=== PATIENT | female | born 1990 | race Caucasian/White ===

== ENCOUNTER 2018-06-16 11:46 | Emergency (ER) | payer OTHER ==
[2018-06-16] MEDS ORDERED: DEXAMETHASONE SOD PHOS INJ 10 MG/1 ML VIAL IV ONE (12:14)
[2018-06-16] MEDS ORDERED: NORMAL SALINE 1000 ML 1,000 ML IV ONE (12:14)
--- NOTE | 2018-06-16 12:14 | ER Document Report ---
ED Medical Screen (RME) - General Chief Complaint: Sore Throat Stated Complaint: SORE THROAT Time Seen by Provider: 06/16/18 11:53 TRAVEL OUTSIDE OF THE [place] IN LAST 30 DAYS: No - HPI Notes: 06/16/18 12:13 Patient sent from urgent care for positive strep throat and tonsillar abscess states that the urgent care contacted an ENT and was told to come to the ER for further evaluation patient is unaware of which ENT the urgent care contacted. - Related Data Allergies/Adverse Reactions: amoxicillin [From Augmentin] Allergy (Verified 06/16/18 11:46) clavulanic acid [From Augmentin] Allergy (Verified 06/16/18 11:46) Past Medical History - Social History Frequency of alcohol use: None Drug Abuse: None Renal/ Medical History: Denies: Hx Peritoneal Dialysis Past Surgical History: Reports: Hx Cholecystectomy Review of Systems - Review of Systems EENT: Throat pain Physical Exam - Vital signs Vitals: Temp Pulse Resp BP Pulse Ox 98.1 F 130 H 18 129/85 H 100 06/16/18 11:50 06/16/18 11:50 06/16/18 11:50 06/16/18 11:50 06/16/18 11:50 - General General appearance: Appears well In distress: None - Respiratory Respiratory status: No respiratory distress Chest status: Nontender Breath sounds: Normal Chest palpation: Normal Course - Vital Signs Vital signs: Temp Pulse Resp BP Pulse Ox 98.1 F 130 H 18 129/85 H 100 06/16/18 11:50 06/16/18 11:50 06/16/18 11:50 06/16/18 11:50 06/16/18 11:50
[2018-06-16] MEDS ORDERED: CLINDAMYCIN 600 MG/D5W RTU 600 MG/50 ML RTUPB IV ONE (12:15)
[2018-06-16 12:50] LABS: ABSOLUTE BASOPHILS # (AUTO) 0.1 10^3/uL (0.0-0.2); ABSOLUTE EOSINOPHILS # (AUTO) 0.1 10^3/uL (0.0-0.6); ABSOLUTE LYMPHOCYTES (AUTO) 1.3 10^3/uL (0.5-4.7); ABSOLUTE MONOCYTES (AUTO) 0.7 10^3/uL (0.1-1.4); ABSOLUTE NEUT (AUTO) 13.9 10^3/uL (1.7-8.2); BASOPHILS % (AUTO) 0.3 % (0-2); EOSINOPHILS % (AUTO) 0.6 % (0-6); HEMATOCRIT 42.9 % (36.0-47.0); HEMOGLOBIN 14.6 g/dL (12.0-15.5); LYMPHOCYTES % (AUTO) 8.2 % (13-45); MEAN CORPUSCULAR HEMOGLOBIN 28.1 pg (27.0-33.4); MEAN CORPUSCULAR VOLUME 83 fl (80-97); MONOCYTES % (AUTO) 4.1 % (3-13); PLATELET COUNT 347 10^3/uL (150-450); RED BLOOD COUNT 5.18 10^6/uL (3.72-5.28); SEGMENTED NEUTROPHILS % (AUTO) 86.8 % (42-78); TOTAL CELLS COUNTED % (AUTO) 100 %; WHITE BLOOD COUNT 16.1 10^3/uL (4.0-10.5)
[2018-06-16 13:18] LABS: ANION GAP 15 (5-19); BLOOD UREA NITROGEN 10 mg/dL (7-20); CALCIUM 10.1 mg/dL (8.4-10.2); CARBON DIOXIDE 26 mmol/L (22-30); CHLORIDE 104 mmol/L (98-107); GLUCOSE 112 mg/dL (75-110); POTASSIUM 3.8 mmol/L (3.6-5.0); SODIUM 144.9 mmol/L (137-145)
--- NOTE | 2018-06-16 14:23 | ER Document Report ---
ED General - General Chief Complaint: Sore Throat Stated Complaint: SORE THROAT Time Seen by Provider: 06/16/18 11:53 TRAVEL OUTSIDE OF THE [place] IN LAST 30 DAYS: No - HPI Notes: Patient is a 27-year-old female that presents to the emergency department for chief complaint of right-sided sore throat. Patient reports sore throat for the last 5 days. She was seen at an urgent care facility just prior to arrival and told she had strep throat. Patient was referred to the emergency room for concern of peritonsillar abscess. She received a steroid at the urgent care. She states they spoke with ear nose and throat but she has not sure who they contacted or if they were able to actually speak with them before referring her to the emergency room. She reports intermittent fevers. She denies any cough, nausea, vomiting. She states she is able to swallow but it hurts. She denies any difficulty breathing. Past Medical History: Negative Past Surgical History: Cystectomy, bilateral TM tubes Social History: Denies drugs alcohol and tobacco Family History: Reviewed and noncontributory for presenting illness Allergies: Reviewed, see documented allergy list. REVIEW OF SYSTEMS: CONSTITUTIONAL : fever No chills No diaphoresis No recent illness EENT: No vision changes No congestion sore throat CARDIOVASCULAR: No chest pain No palpitations RESPIRATORY: No shortness of breath No cough No difficulty breathing GASTROINTESTINAL: No abdominal pain No nausea No vomiting No diarrhea GENITOURINARY: No dysuria No hematuria No difficulty urinating MUSCULOSKELETAL: No back pain No leg pain No arm pain SKIN: No rashes No lesions LYMPHATIC: No swollen, enlarged glands. NEUROLOGICAL: No lightheadedness No headache No weakness No paresthesias PSYCHIATRIC: No anxiety No depression PHYSICAL EXAMINATION: Vital signs reviewed, nursing noted reviewed. GENERAL: Well-appearing, well-nourished and in no acute distress. HEAD: Atraumatic, normocephalic. EYES: Eyes appear normal, extraocular movements intact, sclera anicteric, conjunctiva are normal. ENT: nares patent, bilateral tonsillar edema and exudates. Right greater than left. Moist mucous membranes. NECK: Normal range of motion, bilateral anterior chain adenopathy LUNGS: Breath sounds clear to auscultation bilaterally and equal. No wheezes rales or rhonchi. HEART: Regular rate and rhythm without murmurs ABDOMEN: Soft, nontender, normoactive bowel sounds. No rebound, guarding, or rigidity. No masses appreciated. EXTREMITIES: Nontender, good range of motion, no pitting or edema. NEUROLOGICAL: No focal neurological deficits. Moves all extremities spontaneously Motor and sensory grossly intact on exam. PSYCH: Normal mood, normal affect. SKIN: Warm, Dry, normal turgor, no rashes or lesions noted on exposed skin - Related Data Allergies/Adverse Reactions: amoxicillin [From Augmentin] Allergy (Verified 06/16/18 11:46) clavulanic acid [From Augmentin] Allergy (Verified 06/16/18 11:46) Past Medical History - Social History Smoking Status: Never Smoker Frequency of alcohol use: None Drug Abuse: None Family History: Reviewed & Not Pertinent Patient has suicidal ideation: No Patient has homicidal ideation: No Renal/ Medical History: Denies: Hx Peritoneal Dialysis Past Surgical History: Reports: Hx Cholecystectomy Review of Systems - Review of Systems Notes: Dictated Physical Exam - Vital signs Vitals: Temp Pulse Resp BP Pulse Ox 98.1 F 130 H 18 129/85 H 100 06/16/18 11:50 06/16/18 11:50 06/16/18 11:50 06/16/18 11:50 06/16/18 11:50 - Notes Notes: Dictated Course - Re-evaluation Re-evalutation: 06/16/18 14:23 Vitals reviewed. Nursing notes reviewed. Patient had Sirs criteria and was given clindamycin and Decadron. Blood cultures were ordered. 06/16/18 16:02 Patient has elevated WBC count but a normal lactic acid. After IV hydration she is no longer tachycardic. She has remained hemodynamically stable and is not septic. CT shows some fluid around her right tonsil draining into her prevertebral space however I discussed these findings with the reading radiologist who states there is no discernible abscess or fluid collection requiring drainage. Patient will be started on clindamycin at home. She will return for new or worsening symptoms. She will follow with primary care for reevaluation in a few days. She is in agreement with this plan and stable at discharge. Laboratory 06/16/18 06/16/18 06/16/18 12:39 12:39 12:39 WBC 16.1 H RBC 5.18 Hgb 14.6 Hct 42.9 MCV 83 MCH 28.1 MCHC 34.0 RDW 14.0 Plt Count 347 Seg Neutrophils % 86.8 H Lymphocytes % 8.2 L Monocytes % 4.1 Eosinophils % 0.6 Basophils % 0.3 Absolute Neutrophils 13.9 H Absolute Lymphocytes 1.3 Absolute Monocytes 0.7 Absolute Eosinophils 0.1 Absolute Basophils 0.1 Sodium 144.9 Potassium 3.8 Chloride 104 Carbon Dioxide 26 Anion Gap 15 BUN 10 Creatinine 0.46 L Est GFR ( Amer) > 60 Est GFR (Non-Af Amer) > 60 Glucose 112 H Lactic Acid Calcium 10.1 Serum HCG, Qual NEGATIVE Monotest Group A Strep Rapid 06/16/18 06/16/18 06/16/18 12:39 12:39 14:34 WBC RBC Hgb Hct MCV MCH MCHC RDW Plt Count Seg Neutrophils % Lymphocytes % Monocytes % Eosinophils % Basophils % Absolute Neutrophils Absolute Lymphocytes Absolute Monocytes Absolute Eosinophils Absolute Basophils Sodium Potassium Chloride Carbon Dioxide Anion Gap BUN Creatinine Est GFR ( Amer) Est GFR (Non-Af Amer) Glucose Lactic Acid 0.7 Calcium Serum HCG, Qual Monotest NEGATIVE Group A Strep Rapid POSITIVE Soft Tissue Neck CT 06/16/18 14:01 IMPRESSION: Right-sided tonsillitis without intra tonsillar abscess. There is peritonsillar fluid in the right parapharyngeal space tracking into the prevertebral space. Mild narrowing of the oropharyngeal airway - Vital Signs Vital signs: Temp Pulse Resp BP Pulse Ox 98.1 F 130 H 18 129/85 H 100 06/16/18 11:50 06/16/18 11:50 06/16/18 11:50 06/16/18 11:50 06/16/18 11:50 - Laboratory Result Diagrams: 06/16/18 12:39 06/16/18 12:39 Laboratory results interpreted by me: 06/16/18 06/16/18 12:39 12:39 WBC 16.1 H Seg Neutrophils % 86.8 H Lymphocytes % 8.2 L Absolute Neutrophils 13.9 H Creatinine 0.46 L Glucose 112 H Discharge - Discharge Clinical Impression: Strep throat Condition: Stable Disposition: HOME, SELF-CARE Instructions: Strep Throat ([facility]), Family Physicians / Practices Additional Instructions: Please return to the emergency department if you have any worsening, or concern of your symptoms. Please return to the emergency department if you develop chest pain, difficulty breathing, severe abdominal pain, or ongoing vomiting. Please follow-up with your primary care physician in 2-3 days and any other recommended physicians. If prescribed, take all medications as directed. If you have any questions or concerns do not hesitate to return the emergency department for evaluation. [] Prescriptions: Clindamycin HCl 300 mg PO TID #30 capsule
--- NOTE | 2018-06-16 15:44 | RADIOLOGY REPORT (SQ) ---
EXAM DESCRIPTION: CT SOFT TISSUE NECK WITH COMPLETED DATE/TIME: 06/16/2018 3:28 pm REASON FOR STUDY: tonsilar abscess sore throat, difficulty swallowing, evaluate for peritonsillar ab scess COMPARISON: None. TECHNIQUE: Post IV contrasted scanning from skull base through lung apices with review of bone, soft tissue and lung windows. Reconstructed coronal and sagittal MPR images reviewed. All images stored on PACS. All CT scanners at this facility use dose modulation, iterative reconstruction, and/or weight based d osing when appropriate to reduce radiation dose to as low as reasonably achievable (ALARA). [facility]: Dose Right [facility]: CareDose [facility]: Dose Right [facility]: Teradose 4D [facility]: Sproxil CONTRAST TYPE AND DOSE: contrast/concentration: Isovue 350.00 mg/ml; Total Contrast Delivered: 75.0 ml; Total Saline Delivered: 49.6 ml RENAL FUNCTION: Creatinine 0.47 RADIATION DOSE: CT Rad equipment meets quality standard of care and radiation dose reduction techniq ues were employed. CTDIvol: 15.5 mGy. DLP: 450 mGy-cm. . LIMITATIONS: None. FINDINGS: The right pharyngeal tonsil is enlarged, 3.5 cm craniocaudad by 2.8 cm AP by 2.2 cm transv erse. No well-circumscribed right-sided intra tonsillar abscess. However, there is peritonsillar fl uid in the right parapharyngeal space tracking down into the right prevertebral space. A small amoun t of prevertebral fluid is present from C2 through C4, measuring 4 cm craniocaudad by 1.6 cm transver se by 4 mm AP. There is mild narrowing of the oropharyngeal airway. Left pharyngeal tonsil is borderline enlarged, 2.9 x 2.9 x 1.6 cm in size. No intra tonsillar or per itonsillar left-sided abscess. Left parapharyngeal fat is unremarkable. SKULL BASE: Inferior brain parenchyma unremarkable MAJOR SALIVARY GLANDS: No solid or cystic masses. No inflammatory changes. LYMPHADENOPATHY: Mild cervical reactive adenopathy with enlarged jugulodigastric, carotid space, and posterior triangle lymph nodes. MUCOSAL MASSES OR ASYMMETRY: As above LARYNX/CORDS: No abnormal findings. VASCULAR STRUCTURES: The major vessels are patent. LUNG APICES: Clear. BONES: Intact. THYROID: Normal size. No masses. PARANASAL SINUSES: Clear. OTHER: No other significant finding. IMPRESSION: Right-sided tonsillitis without intra tonsillar abscess. There is peritonsillar fluid i n the right parapharyngeal space tracking into the prevertebral space. Mild narrowing of the orophar yngeal airway TECHNICAL DOCUMENTATION: JOB ID: [id number] Quality ID # [id number]: Final reports with documentation of one or more dose reduction techniques (e.g., Au tomated exposure control, adjustment of the mA and/or kV according to patient size, use of iterative reconstruction technique) 2010 [employer]- All Rights Reserved Reading location - IP/workstation name: [email or web address]
[2018-06-16 16:10] VITALS: BP 124/78
== END 2018-06-16 16:10 | disposition home or self-care (01) ==
LOC: ER 11:46
DX: J02.0 Streptococcal pharyngitis (principal); Z88.1 Allergy status to other antibiotic agents; Z90.49 Acquired absence of other specified parts of digestive tract
CPT/HCPCS: 99283; 96375; 96365; 36415; 87040; 87880; 84703; 85025; 86308; 80048; 83605; 70491; J7030; J1100

== ENCOUNTER 2018-09-16 07:34 | Day surgery (SDC) | payer OTHER ==
[~2018-09-16 07:34] MED LIST: LIDOCAINE 2% INJ-PF (20 MG/ML) 10 ML AMPUL ONE; MIDAZOLAM 2 MG/2 ML INJ ONE; PROPOFOL INJ 200 MG/20 ML VIAL IV ONE
[2018-09-16] MEDS ORDERED: PROPOFOL INJ 200 MG/20 ML VIAL IV ONE (09:35)
[2018-09-16] MEDS ORDERED: PROMETHAZINE HCL INJ 25 MG/1 ML VIAL IV PRN (09:53)
[2018-09-16] MEDS ORDERED: MEPERIDINE HCL/PF INJ 25 MG/1 ML DISP.SYRIN IV PRN (09:53)
[2018-09-16] MEDS ORDERED: DIPHENHYDRAMINE HCL 50 MG/ML VIAL IV PRN (09:53)
[2018-09-16 10:24] VITALS: BP 118/82
--- NOTE | 2018-09-16 12:27 | Operative Report ---
Operative Report DATE OF SURGERY: 09/16/18 Operative Report: The risks benefits and alternatives of the procedure explained to the patient in detail and informed consent is obtained.A GIF Olympus video scope was inserted into the patient's mouth and hypopharynx, the esophagus is identified intubated and insufflated, the scope was then advanced through the esophagus stomach and duodenum, retroflexion maneuver is done ,the esophagus stomach and first and second portions of the duodenum examined. PREOPERATIVE DIAGNOSIS: Gastroesophageal reflux disease POSTOPERATIVE DIAGNOSIS: Esophagitis versus Pedroza's status post biopsy. Gastritis status post biopsy rule out Helicobacter pylori OPERATION: EGD with biopsy SURGEON: NANCIE WARD ANESTHESIA: LMAC TISSUE REMOVED OR ALTERED: As noted above. COMPLICATIONS: None. ESTIMATED BLOOD LOSS: None. INTRAOPERATIVE FINDINGS: As noted above. PROCEDURE: Patient tolerated the procedure well. No immediate postprocedure complications are noted. Patient discharged in good condition. Discharge date 09/16/2018. Discharge diet: Regular. Discharge activity: Regular. 2-3-week follow-up to discuss findings. Patient is instructed to call the office or proceed to the emergency room should there be any further problems or questions.
== END 2018-09-16 10:30 | disposition home or self-care (01) ==
LOC: OROUT 07:34
PROVIDERS: ATTEND Internal Medicine Gastroenterology
DX: K21.0 Gastro-esophageal reflux disease with esophagitis (principal); Z79.899 Other long term (current) drug therapy; Z88.1 Allergy status to other antibiotic agents; K29.50 Unspecified chronic gastritis without bleeding
CPT/HCPCS: 43239; 81025; 88342 ×2; 88305 ×2; J2704; 731; J2250; J3490

== ENCOUNTER 2019-07-10 12:28 | Emergency (ER) | payer OTHER ==
[2019-07-10] MEDS ORDERED: MAG HYDROX/AL HYDROX/SIMETH SUSP 30 ML UDCUP PO ONE (12:43)
[2019-07-10] MEDS ORDERED: LIDOCAINE 2% VISCOUS SOLN 20 ML UDCUP PO ONE (12:43)
[2019-07-10] MEDS ORDERED: METOCLOPRAMIDE HCL ORAL SOLN 10 MG/10 ML UDCUP PO ONE (12:43)
--- NOTE | 2019-07-10 12:45 | ER Document Report ---
ED Medical Screen (RME) - General Chief Complaint: Abdominal Pain Stated Complaint: FLANK PAIN,DIRREHA Time Seen by Provider: 07/10/19 12:39 Primary Care Provider: RYAN WINKLER PA [Primary Care Provider] - Follow up as needed Mode of Arrival: Ambulatory Information source: Patient Notes: Patient presents emergency department with complaints of right upper quad abdo kevin pain epigastric pain heartburn and diarrhea. Reports history of heartburn for the past year. She has had a EGD which was discovered gastritis. She reports right upper quad abdominal pain started last night. Diarrhea today. Denies fever vomiting denies nausea. Abdomen is non tender to palpate. I have greeted and performed a rapid initial assessment of this patient. A comprehensive ED assessment and evaluation of the patient, analysis of test results and completion of the medical decision making process will be conducted by additional ED providers. Dictation of this chart was performed using voice recognition software; therefore, there may be some unintended grammatical errors. TRAVEL OUTSIDE OF THE [place] IN LAST 30 DAYS: No - Related Data Allergies/Adverse Reactions: amoxicillin [From Augmentin] Allergy (Severe, Verified 07/10/19 12:37) ? clavulanic acid [From Augmentin] Allergy (Severe, Verified 07/10/19 12:37) ? clindamycin Allergy (Severe, Verified 07/10/19 12:37) RAPID HEART RATE ibuprofen [From Motrin] Adverse Reaction (Verified 07/10/19 12:37) Pruritis Past Medical History - Social History Chew tobacco use (# tins/day): No Frequency of alcohol use: None Drug Abuse: None - Past Medical History Cardiac Medical History: Denies: Hx Coronary Artery Disease, Hx Heart Attack, Hx Hypertension Pulmonary Medical History: Denies: Hx Asthma, Hx Bronchitis, Hx COPD, Hx Pneumonia Neurological Medical History: Denies: Hx Cerebrovascular Accident, Hx Seizures Renal/ Medical History: Denies: Hx Peritoneal Dialysis Musculoskeltal Medical History: Denies Hx Arthritis Past Surgical History: Reports: Hx Cholecystectomy - Immunizations Hx Diphtheria, Pertussis, Tetanus Vaccination: Yes Physical Exam - Vital signs Vitals: Temp Pulse BP Pulse Ox 97.9 F 136 H 139/92 H 100 07/10/19 12:32 07/10/19 12:32 07/10/19 12:32 07/10/19 12:32 Course - Vital Signs Vital signs: Temp Pulse Resp BP Pulse Ox 97.9 F 136 H 139/92 H 100 07/10/19 12:32 07/10/19 12:32 07/10/19 12:32 07/10/19 12:32 Doctor's Discharge - Discharge Referrals: RYAN WINKLER PA [Primary Care Provider] - Follow up as needed
[2019-07-10 13:22] LABS: ABSOLUTE EOSINOPHILS # (AUTO) 0.1 10^3/uL (0.0-0.6); ABSOLUTE LYMPHOCYTES (AUTO) 3.1 10^3/uL (0.5-4.7); ABSOLUTE MONOCYTES (AUTO) 0.4 10^3/uL (0.1-1.4); ABSOLUTE NEUT (AUTO) 8.4 10^3/uL (1.7-8.2); BASOPHILS % (AUTO) 0.3 % (0-2); EOSINOPHILS % (AUTO) 0.7 % (0-6); HEMATOCRIT 42.9 % (36.0-47.0); HEMOGLOBIN 14.7 g/dL (12.0-15.5); LYMPHOCYTES % (AUTO) 25.5 % (13-45); MEAN CORPUSCULAR HEMOGLOBIN 28.3 pg (27.0-33.4); MEAN CORPUSCULAR HGB CONC 34.2 g/dL (32.0-36.0); MEAN CORPUSCULAR VOLUME 83 fl (80-97); MONOCYTES % (AUTO) 3.5 % (3-13); PLATELET COUNT 355 10^3/uL (150-450); RED BLOOD COUNT 5.18 10^6/uL (3.72-5.28); RED CELL DISTRIBUTION WIDTH 13.8 % (11.5-14.0); TOTAL CELLS COUNTED % (AUTO) 100 %
[2019-07-10 13:23] LABS: APPEARANCE,URINE CLEAR; BILIRUBIN,URINE NEGATIVE (NEGATIVE); COLOR,URINE COLORLESS; GLUCOSE, URINE NEGATIVE (NEGATIVE); KETONES,URINE NEGATIVE (NEGATIVE); LEUKOCYTE ESTERASE,URINE NEGATIVE (NEGATIVE); NITRITE,URINE NEGATIVE (NEGATIVE); PROTEIN,URINE NEGATIVE (NEGATIVE); URINE SPECIFIC GRAVITY 1.003; UROBILINOGEN,URINE NEGATIVE mg/dL (<2.0)
--- NOTE | 2019-07-10 13:28 | EKG REPORT ---
SEVERITY:- BORDERLINE ECG - SINUS TACHYCARDIA PROBABLE LEFT ATRIAL ABNORMALITY NONSPECIFIC ST-T CHANGES- INFERIOR LEADS : Confirmed by: Mike Watson MD 10-Jul-2019 13:28:07
[2019-07-10 13:59] LABS: ALBUMIN 4.9 g/dL (3.5-5.0); ALKALINE PHOSPHATASE 77 U/L (38-126); AMYLASE 89 U/L (30-110); ANION GAP 12 (5-19); ASPARTATE AMINO TRANSFERASE 25 U/L (14-36); BILIRUBIN,DIRECT 0.1 mg/dL (0.0-0.4); BILIRUBIN,TOTAL 0.5 mg/dL (0.2-1.3); BLOOD UREA NITROGEN 13 mg/dL (7-20); CALCIUM 10.1 mg/dL (8.4-10.2); CARBON DIOXIDE 27 mmol/L (22-30); CHLORIDE 103 mmol/L (98-107); GLUCOSE 95 mg/dL (75-110); POTASSIUM 3.6 mmol/L (3.6-5.0); TOTAL PROTEIN 8.3 g/dL (6.3-8.2)
[2019-07-10] MEDS ORDERED: LOPERAMIDE HCL 2 MG CAPSULE PO ONE (15:35)
[2019-07-10] MEDS ORDERED: NORMAL SALINE 1000 ML 1,000 ML IV ONE (15:35)
--- NOTE | 2019-07-10 15:37 | ER Document Report ---
ED General - General Chief Complaint: Abdominal Pain Stated Complaint: FLANK PAIN,DIRREHA Time Seen by Provider: 07/10/19 12:39 Primary Care Provider: RYAN WINKLER PA [PHYSICIAN ASSOCIATE PROFESSOR OF PHYSICS] - Follow up as needed VALDEZ CLARKE MD [ACTIVE STAFF] - Follow up as needed BELLE CHAN MD [EMERITUS] - Follow up as needed Mode of Arrival: Ambulatory Information source: Patient Notes: Patient presents complaining of epigastric pain off and on since yesterday. Patient states that she has had some diarrhea x10 episodes that started today. Patient denies any nausea or vomiting. Patient denies any fever, chest pain, cough lightheadedness or dizziness. Patient states she was given a GI cocktail in triage and since then her pain has completely resolved. Patient denies any complaints at this time. Patient is tachycardic at this time. Patient states that she does have a history of anxiety and feels that her anxiety about being here causes her to have increased heart rate. Patient states she has had elevated heart rate in the past and this is not new for her. TRAVEL OUTSIDE OF THE [place] IN LAST 30 DAYS: No - HPI Onset: Yesterday Onset/Duration: Waxing and waning, Gone Severity: Mild Pain Level: Denies Associated symptoms: Other - Epigastric pain. denies: Chest pain, Nonproductive cough, Productive cough, Nausea Exacerbated by: Denies Relieved by: Other - GI cocktail Recently seen / treated by doctor: No - Related Data Allergies/Adverse Reactions: amoxicillin [From Augmentin] Allergy (Severe, Verified 07/10/19 12:37) ? clavulanic acid [From Augmentin] Allergy (Severe, Verified 07/10/19 12:37) ? clindamycin Allergy (Severe, Verified 07/10/19 12:37) RAPID HEART RATE ibuprofen [From Motrin] Adverse Reaction (Verified 07/10/19 12:37) Pruritis Past Medical History - General Information source: Patient - Social History Smoking Status: Never Smoker Chew tobacco use (# tins/day): No Frequency of alcohol use: None Drug Abuse: None Occupation: None Family History: Reviewed & Not Pertinent Patient has suicidal ideation: No Patient has homicidal ideation: No - Past Medical History Cardiac Medical History: Reports: Other - Tachycardia Denies: Hx DVT, Hx Pulmonary Embolism Renal/ Medical History: Denies: Hx Peritoneal Dialysis GI Medical History: Reports: Hx Gastroesophageal Reflux Disease Past Surgical History: Reports: Hx Cholecystectomy, Hx Orthopedic Surgery, Other - Mastoid surgery - Immunizations Hx Diphtheria, Pertussis, Tetanus Vaccination: Yes Review of Systems - Review of Systems Constitutional: No symptoms reported. denies: Fever, Recent illness EENT: No symptoms reported Cardiovascular: denies: Chest pain, Palpitations, Heart racing, Syncope, Dizziness Respiratory: No symptoms reported. denies: Cough, Short of breath Gastrointestinal: Abdominal pain. denies: Diarrhea, Nausea, Vomiting Genitourinary: No symptoms reported. denies: Dysuria Female Genitourinary: No symptoms reported Musculoskeletal: No symptoms reported. denies: Back pain Skin: No symptoms reported Hematologic/Lymphatic: No symptoms reported Neurological/Psychological: No symptoms reported. denies: Headaches Physical Exam - Vital signs Vitals: Temp Pulse BP Pulse Ox 97.9 F 136 H 139/92 H 100 07/10/19 12:32 07/10/19 12:32 07/10/19 12:32 07/10/19 12:32 - General General appearance: Appears well, Alert In distress: None - HEENT Head: Normocephalic, Atraumatic Eyes: Normal Conjunctiva: Normal Nasal: Normal Mouth/Lips: Normal Mucous membranes: Normal Neck: Normal, Supple - Respiratory Respiratory status: No respiratory distress Chest status: Nontender Breath sounds: Normal. No: Rales, Rhonchi, Stridor, Wheezing Chest palpation: Normal. No: Tender - Cardiovascular Rhythm: Tachycardia Heart sounds: S1 appreciated, S2 appreciated Murmur: No - Abdominal Inspection: Obese Distension: No distension Bowel sounds: Normal Tenderness: Nontender Organomegaly: No organomegaly - Back Back: Normal, Nontender. No: CVA tenderness - Extremities General upper extremity: Normal inspection, Normal strength General lower extremity: Normal inspection, Normal strength - Neurological Neuro grossly intact: Yes Cognition: Normal Karlee Coma Scale Eye Opening: Spontaneous [place] Coma Scale Verbal: Oriented [place] Coma Scale Motor: Obeys Commands Karlee Coma Scale Total: 15 - Psychological Associated symptoms: Normal affect, Normal mood - Skin Skin Temperature: Warm Skin Moisture: Dry Skin Color: Normal Course - Re-evaluation Re-evalutation: 07/10/19 19:20 Patient is asymptomatic with her tachycardia. Review of previous ER visits does demonstrate the patient has a history of tachycardia typically running in the 130s. Patient attributes her fast heart rate to anxiety. Patient states that she feels anxious and coming to the emergency department. Patient was ambulating the hallway and heart rate maintained 135-136 without any hypoxia. Patient denies headache, chest pain, shortness of breath, lightheadedness or dizziness. Patient has not had any epigastric pain since she was initially given the GI cocktail in triage here today. Consulted with Dr. Lim who advises outpatient follow-up with cardiology for further evaluation. - Vital Signs Vital signs: Temp Pulse Resp BP Pulse Ox 98.0 F 136 H 20 124/97 H 100 07/10/19 17:30 07/10/19 17:30 07/10/19 17:30 07/10/19 17:30 07/10/19 17:30 - Laboratory Result Diagrams: 07/10/19 12:26 07/10/19 12:26 Laboratory results interpreted by me: 07/10/19 07/10/19 12:26 12:26 WBC 12.0 H Absolute Neuts (auto) 8.4 H Total Protein 8.3 H 07/11/19 00:00 Labs- Entire Visit 07/10/19 07/10/19 07/10/19 11:57 12:26 12:26 WBC 12.0 H RBC 5.18 Hgb 14.7 Hct 42.9 MCV 83 MCH 28.3 MCHC 34.2 RDW 13.8 Plt Count 355 Lymph % (Auto) 25.5 [place] % (Auto) 3.5 Eos % (Auto) 0.7 Baso % (Auto) 0.3 Absolute Neuts (auto) 8.4 H Absolute Lymphs (auto) 3.1 Absolute Monos (auto) 0.4 Absolute Eos (auto) 0.1 Absolute Basos (auto) 0.0 Seg Neutrophils % 70.0 D-Dimer Sodium 141.8 Potassium 3.6 Chloride 103 Carbon Dioxide 27 Anion Gap 12 BUN 13 Creatinine 0.70 Est GFR ( Amer) > 60 Est GFR (MDRD) Non-Af > 60 Glucose 95 Calcium 10.1 Total Bilirubin 0.5 Direct Bilirubin 0.1 Neonat Total Bilirubin Not Reportable Neonat Direct Bilirubin Not Reportable Neonat Indirect Bili Not Reportable AST 25 ALT 22 Alkaline Phosphatase 77 Total Protein 8.3 H Albumin 4.9 Amylase 89 TSH Free T4 Free T3 pg/mL Urine Color COLORLESS Urine Appearance CLEAR Urine pH 6.0 Ur Specific [place] 1.003 Urine Protein NEGATIVE Urine Glucose (UA) NEGATIVE Urine Ketones NEGATIVE Urine Blood NEGATIVE Urine Nitrite NEGATIVE Urine Bilirubin NEGATIVE Urine Urobilinogen NEGATIVE Ur Leukocyte Esterase NEGATIVE Urine WBC (Auto) 0 Squamous Epi Cells Auto 2 Urine Mucus (Auto) RARE Urine Ascorbic Acid NEGATIVE Urine HCG, Qual NEGATIVE 07/10/19 07/10/19 12:26 16:25 WBC RBC Hgb Hct MCV MCH MCHC RDW Plt Count Lymph % (Auto) [place] % (Auto) Eos % (Auto) Baso % (Auto) Absolute Neuts (auto) Absolute Lymphs (auto) Absolute Monos (auto) Absolute Eos (auto) Absolute Basos (auto) Seg Neutrophils % D-Dimer 0.33 Sodium Potassium Chloride Carbon Dioxide Anion Gap BUN Creatinine Est GFR ( Amer) Est GFR (MDRD) Non-Af Glucose Calcium Total Bilirubin Direct Bilirubin Neonat Total Bilirubin Neonat Direct Bilirubin Neonat Indirect Bili AST ALT Alkaline Phosphatase Total Protein Albumin Amylase TSH 0.77 Free T4 1.32 Free T3 pg/mL 3.69 Urine Color Urine Appearance Urine pH Ur Specific [place] Urine Protein Urine Glucose (UA) Urine Ketones Urine Blood Urine Nitrite Urine Bilirubin Urine Urobilinogen Ur Leukocyte Esterase Urine WBC (Auto) Squamous Epi Cells Auto Urine Mucus (Auto) Urine Ascorbic Acid Urine HCG, Qual - Diagnostic Test Radiology reviewed: Reports reviewed - EKG Interpretation by Me EKG shows normal: Sinus rhythm Rate: Tachycardia Additional EKG results interpreted by me: 07/10/19 19:[address] elevation, QTc 431 Discharge - Discharge Clinical Impression: Tachycardia Gastritis Qualifiers: Gastritis type: unspecified gastritis Chronicity: unspecified Gastritis bleeding: without bleeding Qualified Code(s): K29.70 - Gastritis, unspecified, without bleeding Condition: Stable Disposition: HOME, SELF-CARE Instructions: Gastritis ([facility]) Additional Instructions: Return immediately for any new or worsening symptoms Followup with your primary care provider, call tomorrow to make a followup appointment You should follow-up with senior java programmer for further evaluation of your fast heart rate. You will need further evaluation on outpatient basis. Prescriptions: Sucralfate [Carafate 1 gm Tablet] 1 gm PO ACHS #40 tablet Omeprazole Magnesium [Prilosec Otc] 20 mg PO DAILY #15 tablet. Referrals: RYAN WINKLER PA [PHYSICIAN ASSOCIATE PROFESSOR OF PHYSICS] - Follow up as needed VALDEZ CLARKE MD [ACTIVE STAFF] - Follow up as needed BELLE CHAN MD [EMERITUS] - Follow up as needed
[2019-07-10 16:19] LABS: FREE T3 3.69 pg/mL (2.77-5.27); FREE T4 (FREE THYROXINE) 1.32 ng/dL (0.78-2.19)
[2019-07-10 16:32] LABS: THYROID STIMULATING HORMONE 0.77 uIU/mL (0.47-4.68)
[2019-07-10 17:30] VITALS: BP 124/97
--- NOTE | 2019-07-10 18:03 | RADIOLOGY REPORT (SQ) ---
EXAM DESCRIPTION: CHEST 2 VIEWS COMPLETED DATE/TIME: 07/10/2019 5:49 pm REASON FOR STUDY: tachycardia, epig pain COMPARISON: 06/17/2018 TECHNIQUE: Frontal and lateral radiographic views of the chest acquired. NUMBER OF VIEWS: Two view. LIMITATIONS: None. FINDINGS: LUNGS AND PLEURA: No pneumothorax. No consolidation or pleural effusion. MEDIASTINUM AND HILAR STRUCTURES: Stable. HEART AND VASCULAR STRUCTURES: Stable. BONES: No acute findings. HARDWARE: None in the chest. OTHER: No other significant finding. IMPRESSION: NO ACUTE FINDINGS. TECHNICAL DOCUMENTATION: JOB ID: [id number] [place]-72 2010 [employer]- All Rights Reserved Reading location - IP/workstation name: [employer] [email or web address]
== END 2019-07-10 19:39 | disposition home or self-care (01) ==
LOC: ER 12:28
DX: K29.70 Gastritis, unspecified, without bleeding (principal); R00.0 Tachycardia, unspecified; R10.13 Epigastric pain; Z88.3 Allergy status to other anti-infective agents; Z90.49 Acquired absence of other specified parts of digestive tract
CPT/HCPCS: 93005; 99284; 96360; 36415; 84439; 82150; 84443; 85025; 81025; 80053; 81001; 84481; 85379; 71046; 93010; J3490; J7030

== ENCOUNTER 2019-07-17 09:09 | Day surgery (SDC) | payer OTHER ==
[~2019-07-17 09:09] MED LIST changes: -LIDOCAINE 2% INJ-PF (20 MG/ML) 10 ML AMPUL ONE; -MIDAZOLAM 2 MG/2 ML INJ ONE
[2019-07-17] MEDS ORDERED: MIDAZOLAM 2 MG/2 ML INJ ONE (09:18)
[2019-07-17] MEDS ORDERED: LIDOCAINE 0.5% INJ-PF (5 MG/ML) 50 ML SDV SUBCUT PRN (09:49)
[2019-07-17] MEDS ORDERED: LACTATED RINGERS 1000 ML IV PRN (09:49)
[2019-07-17] MEDS ORDERED: PROPOFOL INJ 200 MG/20 ML VIAL IV ONE (11:04)
[2019-07-17 11:36] VITALS: BP 128/84
--- NOTE | 2019-07-17 12:52 | Operative Report ---
Operative Report DATE OF SURGERY: 07/17/19 Operative Report: The risks benefits and alternatives of the procedure explained to the patient in detail and informed consent is obtained.A GIF Olympus video scope was inserted into the patient's mouth and hypopharynx ,the esophagus is identified intubated and insufflated, the scope was then advanced through the esophagus stomach and duodenum, retroflexion maneuver is done, the esophagus stomach and first and second portions of the duodenum examined. PREOPERATIVE DIAGNOSIS: Epigastric pain rule out peptic ulcer disease POSTOPERATIVE DIAGNOSIS: Esophagitis status post biopsy. Hiatal hernia. Gastritis status post biopsy without Helicobacter pylori OPERATION: EGD with biopsy SURGEON: NANCIE WARD ANESTHESIA: LMAC TISSUE REMOVED OR ALTERED: As noted above. COMPLICATIONS: None. ESTIMATED BLOOD LOSS: None. INTRAOPERATIVE FINDINGS: As noted above. PROCEDURE: Patient tolerated the procedure well. No immediate postprocedure complications are noted. Patient is discharged in good condition. Discharge date 07/17/2019. Discharge diet: Regular. Discharge activity: Regular. 2 to 3-week follow-up to discuss findings. Patient is instructed to call the office or proceed to the emergency room should there be any further problems or questions. Wait on the pathology.
== END 2019-07-17 11:38 | disposition home or self-care (01) ==
LOC: END 09:09
PROVIDERS: ATTEND Internal Medicine Gastroenterology
DX: K21.0 Gastro-esophageal reflux disease with esophagitis (principal); K44.9 Diaphragmatic hernia without obstruction or gangrene; K29.50 Unspecified chronic gastritis without bleeding; Z79.899 Other long term (current) drug therapy; Z88.1 Allergy status to other antibiotic agents
CPT/HCPCS: 43239; 88342 ×2; 88305 ×2; 00731; J2250; J2704; 731